=== PATIENT | male | born 1965 | race Caucasian/White ===

== ENCOUNTER 2018-12-08 05:48 | Emergency (ER) | payer OTHER ==
[~2018-12-08] VITALS: Ht 195.6 cm; Wt 131.8 kg
[2018-12-08 05:52] VITALS: TEMP 97.2
[2018-12-08 07:14] LABS: INR 1.1 (0.8-3.0); PROTHROMBIN TIME 12.5 SECONDS (9.7-12.8)
[2018-12-08 07:16] LABS: ALANINE AMINOTRANSFERASE 40 U/L (21-72); ALBUMIN 4.3 gm/dL (3.5-5.0); ALKALINE PHOSPHATASE 78 U/L (50-136); ANION GAP 8 mmol/L (7-16); AST,SGOT 24 U/L (15-37); BILIRUBIN,TOTAL 1.1 mg/dL (0.0-1.0); BLOOD UREA NITROGEN 20 mg/dL (9-20); CALCIUM 8.8 mg/dL (8.4-10.2); CARBON DIOXIDE 25 mmol/L (22-30); CHLORIDE 104 mmol/L (98-107); CREATININE, serum 1.11 mg/dL (0.66-1.25); GLUCOSE 131 mg/dL (74-106); LIPASE 46 U/L (23-300); MAGNESIUM 1.9 mg/dL (1.6-2.3); PHOSPHOROUS 2.6 mg/dL (2.5-4.5); POTASSIUM 4.7 mmol/L (3.4-5.0); SODIUM 138 mmol/L (137-145); TOTAL PROTEIN 7.5 gm/dL (6.4-8.2)
[2018-12-08 07:17] LABS: ALCOHOL(ethanol),MEDICAL < 10 mg/dL; PARTIAL THROMBOPLASTIN TIME 32.6 SECONDS (26.0-37.0)
[2018-12-08 07:23] LABS: HEMATOCRIT 49.4 % (42.0-52.0); HEMOGLOBIN 16.9 g/dl (13.5-18.0); MEAN CELL VOLUME 90 fl (80.0-100.0); MEAN CORPUSCULAR HEMOGLOBIN 31 pg (27.0-31.0); MEAN CORPUSCULAR HGB CONC 34 g/dl (33.0-37.0); MEAN PLATELET VOLUME 8.7 fl (7.4-10.4); PLATELET COUNT 250 K/mm3 (130-400); RED BLOOD COUNT 5.48 M/mm3 (4.20-5.60); REDCELL DISTRIBUTION WIDTH-CV 12.5 % (11.5-14.5)
[2018-12-08 07:32] LABS: TROPONIN-I < 0.012 ng/mL (0.000-0.035)
[2018-12-08 07:35] VITALS: BP 140/83; PULSE 87
[2018-12-08 07:45] LABS: LYMPHOCYTE 1 % (20.0-51.0); NEUTROPHILS 96 % (42.0-75.2); PLATELET ESTIMATE NORMAL (NORMAL)
== END 2018-12-08 07:39 | disposition short-term general hospital (02) ==
LOC: COL.ER 05:48
PROVIDERS: Emergency Medicine
DX: I63.9 Cerebral infarction, unspecified (principal)
CPT/HCPCS: J2405; J7030